=== PATIENT | male | born 1990 | race Caucasian/White ===

== ENCOUNTER 2019-02-19 05:47 | Day surgery (SDC) | payer OTHER ==
--- NOTE | 2019-01-23 09:58 | HP ---
CC: [facility] * ADMISSION HISTORY AND PHYSICAL: DATE OF ADMISSION: 02/19/19 ATTENDING SURGEON: Dr. Alli Alvarado * (MARIUSZ Rosales dictating). CHIEF COMPLAINT: Umbilical and epigastric hernias. HISTORY OF PRESENT ILLNESS: This is a generally healthy 28, soon to be 29-year- old male who towards the end of 2017 had an episode where he noted a painful lump above the umbilicus. He has had a longstanding umbilical hernia since infancy, which has been asymptomatic and unchanged. The lump above the umbilicus occurred in relation to some vigorous exercise. He was seen at an urgent care center in [place], but by that time the lump was gone. He states that now and again he will feel the presence of a lump with vigorous activity, but nothing as significant as at the onset. He has certainly not had anything to suggest incarceration or strangulation. Specifically, no nausea or vomiting or change in bowel habits. He was seen in the office by Dr. Alvarado on and then subsequently on 12/20/18 after an ultrasound was obtained. Exam and ultrasound confirmed the presence of a small fat containing epigastric hernia as well as the aforementioned umbilical hernia. Dr. Alvarado has discussed with him the indications for repair of both the epigastric as well as the umbilical hernias. Recommendation is for primary repair of the epigastric hernias and open repair with mesh of the umbilical hernia. The patient understands the indications, risks, benefits, and alternatives and would like to proceed as scheduled with open repair umbilical hernia with mesh and open repair of epigastric hernia. PAST MEDICAL HISTORY: No significant past or active medical problems. PAST SURGICAL HISTORY: His only previous surgeries have been wisdom teeth extraction and surgery on his right toe many years ago. CURRENT MEDICATIONS: None. DRUG ALLERGIES: None. FAMILY HISTORY: Negative for anesthesia problems, bleeding or clotting disorders. SOCIAL HISTORY: The patient lives at home with his . He is a student of [employer]. He is active physically both with running and weight lifting. He is a nonsmoker except for occasional marijuana (a couple of times a week). He drinks on average 1 drink per day. REVIEW OF SYSTEMS: General: No recent constitutional symptoms or acute illnesses. HEENT: No problems reported. Cardiovascular: No chest pain, palpitation, history of hypertension, or heart murmur. Respiratory: No history of asthma, chronic cough, or shortness of breath. GI: No problems reported. : He was noted on recent exam to have a small nodule on the left testis and was seen by Urology who felt that this was a benign cyst and required no further workup unless there is a change. No inguinal hernias. Endocrine: No diabetes or thyroid dysfunction. Remainder of review of systems was negative. PHYSICAL EXAMINATION GENERAL: Well-nourished, well-developed male, in no acute distress. VITAL SIGNS: Height 74 inches, weight 158 pounds. Temperature 97.7, blood pressure 124/72, pulse 72, respirations 12. HEENT: Pupils are equal and round, reactive. EOMs intact. No conjunctival pallor. Oropharynx: Teeth in good repair. No intraoral lesions. NECK: No lymphadenopathy, thyromegaly, or masses. LUNGS: Clear to auscultation. No wheezes. HEART: Regular rate and rhythm. No murmur noted. ABDOMEN: Umbilical hernia as noted above, which is mildly tender to palpation, but easily reducible. Above this, there is a hint of a small lump, though not clearly reproducible on my exam. He also does have some limited diastasis in the upper mid abdomen. GENITALIA AND RECTAL: Not done. BACK: No spinous process or CVA tenderness. EXTREMITIES: No edema. NEUROLOGICAL: Grossly intact. SKIN: Warm and dry. No suspicious rashes or lesions. IMPRESSION: Umbilical and epigastric hernias. PLAN: Open repair umbilical hernia with mesh (open repair of epigastric hernia) . MARIUSZ ROSALES [id number]/[facility] #: [id number] MTDD
[~2019-02-19 05:47] MED LIST: Buffered Lidocaine 1% SYRIN* 1 ML/SYRINGE INTRADERM ONE
[2019-02-19] MEDS ORDERED: Lactated Ringers 1000 ML Bag* 1,000 ML IV SCH (06:00)
[2019-02-19] MEDS ORDERED: Famotidine IV* 10 MG/ML 2 ML (20 mg) IV ONE (06:00)
[2019-02-19] MEDS ORDERED: Buffered Lidocaine 1% SYRIN* 1 ML/SYRINGE INTRADERM ONE (06:54)
[2019-02-19] MEDS ORDERED: ceFAZolin 2 GM in NS PREMIX(*) 2 GM/100 ML BAG IVPB ONE (06:54)
[2019-02-19] MEDS ORDERED: Famotidine IV* 10 MG/ML 2 ML (20 mg) ONE (06:54)
[2019-02-19] MEDS ORDERED: KETAMINE HCL* 50 MG/ML 10 ML VIAL ONE (07:09)
[2019-02-19] MEDS ORDERED: Ondansetron INJ* 2 MG/ML VIAL ONE (07:09)
[2019-02-19] MEDS ORDERED: Ketorolac INJ* 30 MG/ML 1 ML VIAL ONE (07:09)
[2019-02-19] MEDS ORDERED: Propofol* 10 MG/ML 20 ML BTL ONE ×2 (07:09→07:50)
[2019-02-19] MEDS ORDERED: Lidocaine 2% PF * 5 ML VIAL ONE (07:09)
[2019-02-19] MEDS ORDERED: Midazolam* 1 MG/ML 5 ML VIAL (5 MG) ONE ×2 (07:09→07:30)
[2019-02-19] MEDS ORDERED: fentaNYL* 50 MCG/ML 2 ML VIAL (100 MCG VIAL) ONE (07:09)
[2019-02-19] MEDS ORDERED: Dexamethasone IV* 4 MG/ML 1 ML (4 MG) ONE (07:09)
[2019-02-19] MEDS ORDERED: Lidocaine 1% INJ* 10 MG/ML 30 ML SDV ONE (07:13)
[2019-02-19] MEDS ORDERED: Bupivacaine 0.5% W/EPI SDV* 30 ML VIAL ONE (07:13)
[2019-02-19] MEDS ORDERED: Naloxone* 0.4 MG/ML 1 ML VIAL IV PRN (07:23)
[2019-02-19] MEDS ORDERED: Ondansetron INJ* 2 MG/ML VIAL IV PRN (07:23)
[2019-02-19] MEDS ORDERED: fentaNYL* 50 MCG/ML 2 ML VIAL (100 MCG VIAL) IV PRN (07:23)
[2019-02-19] MEDS ORDERED: oxyCODONE/Acetamin 5/325 MG* TAB PO PRN (07:23)
[2019-02-19 09:41] VITALS: BP 137/87
--- NOTE | 2019-02-20 16:28 | OP ---
DATE OF OPERATION: 02/20/19 [facility] DATE OF : [birth year] SURGEON: Alli Alvarado MD. DIRECTOR CLINICAL PHARMACOLOGY: Rylie Kowalski NP. ANESTHESIOLOGIST: Dr. Mcallister. ANESTHESIA: General with local. PRE-OP DIAGNOSES: 1. Epigastric hernia. 2. Umbilical hernia. POST-OP DIAGNOSES: 1. Epigastric hernia. 2. Umbilical hernia. OPERATIVE PROCEDURES: 1. Open primary repair of small epigastric hernia. 2. Open repair with mesh of umbilical hernia. ESTIMATED BLOOD LOSS: Minimal. WOUND CLASSIFICATION: 1. COMPLICATIONS: None. SPECIMENS: None. DRAINS: None. DESCRIPTION OF PROCEDURE: Written informed consent was obtained, the abdomen was marked with indelible ink and preoperative antibiotics were administered. The patient was taken to the operating room and placed in the supine position. Sequential compression device and warming blanket were applied. Anesthesia was administered and the abdomen was prepped and draped in usual sterile fashion. Time out verification was completed. Initially 0.25% Marcaine mixed with 1% lidocaine was infiltrated in the midline of the abdomen above the umbilicus approximately 4 cm, where there was a palpable tender bulge. A vertical incision was then made and carried down to the midline fascia. Here identified I a rather generous portion of preperitoneal fat that had herniated out through a small epigastric hernia defect at the midline of the fascia, which was only approximately 5 mm in diameter. The fat was excised and the facial defect was closed with the single 0 Vicryl suture to completely close this without tension. Marcaine was infiltrated. The wound was closed in layers of 3-0 and 4-0 Vicryl suture. Attention was turned to the umbilical hernia, and a semicircular incision was made just inferior to the umbilicus. This was carried down to the midline fascia. The umbilical skin was exercised off the umbilical stock circumferentially to expose preperitoneal fat that extended out through a facial defect approximately 1.5 In size. The preperitoneal space was developed. I did make a rent in the peritoneum and this was closed with 3-0 Vicryl suture, although it was very thin in areas. A 1.7-inch Bard dual-coated mesh was then placed in the retrofascial space and sutured superiorly and inferiorly using the attached straps with a horizontal mattress 0 Vicryl suture. The mesh sat nicely without wrinkling and covered the defect nicely. Hemostasis was assured. The north fork fascia was closed with interrupted 0 Vicryl suture in transverse orientation. The skin and subcutaneous tissue were closed with 3-0 and 4-0 Vicryl sutures. Steri-Strips and sterile dressings were applied. The patient tolerated the procedure well and was taken to the recovery room in stable condition. [id number]/[facility] #: [id number] MTDAlexsander
--- NOTE | 2019-02-26 16:39 | OP ---
ADDENDUM TO OPERATIVE REPORT Addendum: The date should correctly show the procedure was done on 02/19/2019 and not 02/20/2019 as shown in the originally dictated operative report. DATE OF OPERATION: 02/19/2019. OPERATIVE PROCEDURE: Open repair of a primary epigastric hernia and open repair with mesh of an umbilical hernia. [id number]/[facility] #: [id number] MTDD
== END 2019-02-19 10:19 | disposition home or self-care (01) ==
LOC: OR 05:47
PROVIDERS: ATTEND Surgery
DX: K43.9 Ventral hernia without obstruction or gangrene (principal); K42.9 Umbilical hernia without obstruction or gangrene
CPT/HCPCS: C1781; J0690; J1100; J1885; J2250; J2405; J2704; J3010